=== PATIENT | female | born 1965 | race Caucasian/White ===

== ENCOUNTER → 2020-07-25 | Day surgery (SDC) | payer OTHER ==
--- OUTSIDE RECORDS SUMMARY | 2020-07-25 11:16 | XMS REPORT | Clinical Summary ---
:1965 Author Organization [facility] Address [address] [place] [address] Care Team Providers Name Role Phone Pedro Naidu MD, Topher Shen Primary Care Provider [phone] Allergies Not on File Medications Not on file Active Problems Not on file Encounters Date Type Specialty Care Team Description 07/18/2020 Hospital Encounter Radiology [place], [place] Radicu lopathy, cervical region; MD [place] Screening for osteoporosis 07/18/2020 Hospital Encounter Radiology Esvinot, [place] Radicu lopathy, cervical region; MD [place] Screening for osteoporosis 07/18/2020 Hospital Encounter Radiology Winter[place]ot, [place] Radicu lopathy, cervical MD [place] 07/18/2020 Transcribe Orders Access Kerry Espinalyojaci Luiscul opadaisy shukla MD region (Primar y Dx) 07/18/2020 Travel 07/14/2020 Community Orders ADMIN Kerry Espinalyola Radiculo walter, daisy Betancourt MD (Primary Dx) 07/06/2020 Travel 07/04/2020 Hospital Encounter Radiology Kerry Espinalyola Radicu lopathy, cervical MD [place] region 07/04/2020 Travel 07/04/2020 Transcribe Orders Access Winnie Espinall daisy bell MD region (Primar y Dx) after 07/25/2019 Social History Tobacco Use Types Packs/Day Years Used Date Never Assessed Sex Assigned at Date Recorded Not on file Job Start Date Occupation Industry Not on file Not on file Not on file COVID-19 Exposure Response Date Recorded In the last month, have you been in contact with No / Unsure 07/18/2020 11:43 AM LEAD MECHANIC someone who was confirmed or suspected to have Coronavirus / COVID-19? Last Filed Vital Signs Vital Sign Reading Time Taken Comments Blood Pressure - - Pulse - - Temperature - - Respiratory Rate - - Oxygen Saturation - - Inhaled Oxygen Concentration - - Weight 74.4 kg (164 lb) 07/18/2020 2:59 PM LEAD MECHANIC Height 165.1 cm (5' 5") 07/18/2020 2:59 PM LEAD MECHANIC Body Mass Index 27.29 07/18/2020 2:59 PM LEAD MECHANIC Plan of Treatment Health Maintenance Due Date Last Done Comments CERVICAL CANCER SCREENING 11/17/1988 BREAST CANCER SCREENING 11/17/2017 COLONOSCOPY SCREENING 11/17/2017 SHINGLES VACCINES (#1) 11/17/2017 INFLUENZA VACCINE 03/12/2020 Procedures Procedure Name Priority Date/Time Associated Diagnosis Comme nts BONE DENSITY Routine 07/18/2020 2:59 Radiculopathy, Results f or this PM LEAD MECHANIC cervical region procedure are in Screening for the results osteoporosis section. MRI CERVICAL SPINE Routine 07/18/2020 12:18 Radiculopathy, Res ults for this WO CONTRAST PM LEAD MECHANIC cervical procedure are i n the results section. XR CERVICAL SPINE Routine 07/04/2020 12:58 Radiculopathy, Resu lts for this COMPLETE W FLEX EXT PM LEAD MECHANIC cervical region proce dure are in the results section. after 07/25/2019 Results Bone Density (07/18/2020 2:59 PM LEAD MECHANIC) Specimen Narrative Performed At EXAMINATION: BONE DENSITY [facility] CLINICAL HISTORY: M54.12 Radiculopathy cervical re gion, Z13.820 Encounter for screening for osteoporosis, xray. Oste oporosis screening. COMPARISON: None. The results of this study expressed as bone mineral de nsity (BMD) were as follows: Trabecular Bone Score (TBS): TBS L1-L4: 1.349, (>1.350 normal, 1.200-1.350 partia lly degraded microarchitecture, <1.200 degraded micro architecture.) The 10 year probability of fracture, adj usted for FRAX: Major Osteoporotic Fracture: 6.0% Hip Fracture: 0.5% AP spine (L1- L4) BMD: 1.281 g/cm2 T-Score: 0.8 Z-Score: 1.1 Dual Femur (Total Mean): BMD: 0.925 g/cm2 T-Score: -0.7 Z-Score: -0.3 IMPRESSION: Normal bone mineral density. [id number] A copy of this scans including a report detailing thes e results will follow. Note: The world health organization (WHO) has classifi ed the patient's T-score as follows: Above (-1) as normal (-1) to (-2.5) as low (osteopenia) Below (-2.5) as abnormally low (osteopor osis, increased fracture risk) For premenopausal women, men under age 50 years, and children, the WHO classification does not apply. In these individuals pl ease assess bone mineral density with Z scores for each s keletal site examined. Z scores above -2.0: Within expected ran ge for age. Z scores equal to or lower than -2.0: Below the expe cted range for age. Dual femur FRAX: Risk factors: None. 10 year probability of fracture: 1. Major osteoporotic: 6.1% 2. Hip:0.6% 3. Based on dual femur right neck BMD Procedure Note Hm Interface, Radiology Results Incoming - 07/18/2020 3:20 PM LEAD MECHANIC EXAMINATION: BONE DENSITY CLINICAL HISTORY: M54.12 Radiculopathy cervical region, Z13.820 Encounter for screening for osteoporosis, xray. Osteoporosis screening. COMPARISON: None. The results of this study expressed as b one mineral density (BMD) were as follows: Trabecular Bone Score (TBS): TBS L1-L4: 1.349, (>1.350 normal, 1.200 -1.350 partially degraded microarchitecture, <1.200 degraded microarchitecture.) The 10 year probability of fracture, adj usted for FRAX: Major Osteoporotic Fracture: 6.0% Hip Fracture: 0.5% AP spine (L1- L4) BMD: 1.281 g/cm2 T-Score: 0.8 Z-Score: 1.1 Dual Femur (Total Mean): BMD: 0.925 g/cm2 T-Score: -0.7 Z-Score: -0.3 IMPRESSION: Normal bone mineral density. [id number] A copy of this scans including a report detailing these results will follow. Note: The world health organization (WHO ) has classified the patient's T-score as follows: Above (-1) as normal (-1) to (-2.5) as low (osteopenia) Below (-2.5) as abnormally low (osteopor osis, increased fracture risk) For premenopausal women, men under age 50 years, and children, the WHO classification does not apply. In these individuals please assess bone mineral density with Z scores for each skeletal site examined. Z scores above -2.0: Within expected ran ge for age. Z scores equal to or lower than -2.0: B elow the expected range for age. Dual femur FRAX: Risk factors: None. 10 year probability of fracture: 1. Major osteoporotic: 6.1% 2. Hip:0.6% 3. Based on dual femur right neck BMD Performing Organization Address City/State/ZIP Code Phon e Number [facility] [address] [place] [address] MRI Cervical Spine Wo Contrast (07/18/2020 12:18 PM LEAD MECHANIC) Specimen Narrative Performed At This result has an attachment that is no t available. EXAMINATION: MRI CERVICAL SPINE WO CONTRAST [facility] CLINICAL HISTORY: M54.12 Radiculopathy cervical helen on, Neck pain COMPARISON: July 04, 2020. TECHNIQUE: Multiplanar multisequence non contrast enhanced examination was performed of the cervical spine. FINDINGS: There is straightening of the cervical l ordosis. No spondylolisthesis is seen at any level. Vertebral body heights are maintained. No evidence of marrow edema or suspicious intraosseous lesion. Atlantoaxial, atlantooccipital, bilateral facet articulations are maintained. Partially imaged posterior fossa structures are mainta ined. Visualized cord shows normal signal characteristics, m orphology and caliber. Changes at individual levels are provided below. At C2-C3, no significant disc bulge. No spinal canal or neural foraminal narrowing. At C3-C4, no significant disc bulge. No spinal canal or neural foraminal narrowing. At C4-C5, there is loss of disc height. There is a broad-based posterior disc bulge. There is uncovertebral hypertrophy. There is moderate spinal canal and moderate to severe right and severe left neural foraminal narrowing. At C5-C6, loss of disc height. There is a right paracentral disc protrusion with an underlying broad-based posterior disc bulge. Uncovertebral/facet arthrosis is present. There is moderate spinal canal and moderate to severe right and severe left neural foraminal narrowing. At C6-C7, there is a mild posterior disc bulge. There is uncovertebral/facet arthrosis. There is mild spinal canal narrowing. There is mild bilateral neural foraminal narrowing. A small 4 mm perineural cyst seen in the left neural foramina. At C7-T1, no significant disc bulge, no significant spinal canal or neural foraminal narrowing. Pre and paraspinal soft tissues are maintained. IMPRESSION: Multilevel degenerative zhang ges that are most advanced at C4-C5 and C5-C6 where there is moderate spinal canal, moderate to severe right and severe left neural foraminal narrowing. No cord signal intensity abnormality. [id number] Procedure Note Hm Interface, Radiology Results Incoming - 07/18/2020 1:10 PM LEAD MECHANIC EXAMINATION: MRI CERVICAL SPINE WO CONTRAST CLINICAL HISTORY: M54.12 Radiculopathy cervical region, Neck pain COMPARISON: July 04, 2020. TECHNIQUE: Multiplanar multisequence non contrast enhanced examination was performed of the cervical spine. FINDINGS: There is straightening of the cervical l ordosis. No spondylolisthesis is seen at any level. Vertebral body heights are maintained. No evidence of marrow edema or suspicious intraosseous lesion. Atlantoaxial, atlantooccipital, bilateral facet articulations are maintained. Partially imaged posterior fossa structu res are maintained. Visualized cord shows normal signal marcy acteristics, morphology and caliber. Changes at individual levels are provide d below. At C2-C3, no significant disc bulge. No spinal canal or neural foraminal narrowing. At C3-C4, no significant disc bulge. No spinal canal or neural foraminal narrowing. At C4-C5, there is loss of disc height. There is a broad-based posterior disc bulge. There is uncovertebral hypertrophy. There is moderate spinal canal and moderate to severe right and severe left neural foraminal narrowing. At C5-C6, loss of disc height. There is a right paracentral disc protrusion with an underlying broad-based posterior disc bulge. Uncovertebral/facet arthrosis is present. There is moderate spinal canal and moderate to severe right and severe left neural foraminal narrowing. At C6-C7, there is a mild posterior disc bulge. There is uncovertebral/facet arthrosis. There is mild spinal canal narrowing. There is mild bilateral neural foraminal narrowing. A small 4 mm perineural cyst seen in the left neural foramina. At C7-T1, no significant disc bulge, no significant spinal canal or neural foraminal narrowing. Pre and paraspinal soft tissues are main tained. IMPRESSION: Multilevel degenerative zhang ges that are most advanced at C4-C5 and C5-C6 where there is moderate spinal canal, moderate to severe right and severe left neural foraminal narrowing. No cord signal intensity abnormality. [id number] Performing Organization Address City/State/ZIP Code Phon e Number [facility] [id number] [place] [address] XR Cervical Spine Complete w flex/ext (07/04/2020 12:58 PM LEAD MECHANIC) Specimen Narrative Performed At EXAMINATION: Lateral neural, flexion and extension vie ws; oblique, AP [facility] and odontoid radiographs of the cervical spine in the standing position. CLINICAL HISTORY: M54.12 Radiculopathy cervical helen on, Bone neoplasm C-spine check for local recurrence, XRAY COMPARISON: None FINDINGS: There is straightening of the cervical lordosis. There is poor visualization below the C6-7 disc space on the lateral neutral, extension and flexion views. There is mild anterolisth esis at C2-3 and C3-4 with flexion not seen with extensio n. There is greater disc space narrowing at C5-6 and C6-7. There a re ventral osteophytes more prominent at C5-6 and C6-7. There is mild dorsal spondylosis at C4-5, C5-6 and C6-7. There is facet and uncovertebral joint hypertrophic changes. There is for aminal stenosis more prominent on the left at C5-6. Overlying structures obscure details of the mid to lower righ t foramen on the oblique view. The cervical curvature is convex towards the right. Th ere is a left C7 cervical rib and prominent right C7 casas sverse process. IMPRESSION: Degenerative changes in the cervical spi ne. [id number] Procedure Note Hm Interface, Radiology Results Incoming - 07/04/2020 5:05 PM LEAD MECHANIC EXAMINATION: Lateral neural, flexion and extension views; oblique, AP and odontoid radiographs of the cervical spine in the standing position. CLINICAL HISTORY: M54.12 Radiculopathy cervical region, Bone neoplasm C-spine check for local recurrence, XRAY COMPARISON: None FINDINGS: There is straightening of the cervical l ordosis. There is poor visualization below the C6-7 disc space on the lateral neutral, extension and flexion views. There is mild anterolisthesis at C2-3 and C3-4 with flexion not seen with extension. There is greater disc space narrowing at C5-6 and C6-7. There are ventral osteophytes more prominent at C5-6 and C6-7. There is mild dorsal spondylosis at C4-5, C5-6 and C6-7. There is facet and uncovertebral joint hypertrophic changes. There is foraminal stenosis more prominent on the left at C 5-6. Overlying structures obscure details of the mid to lower right foramen on the oblique view. The cervical curvature is convex towards the right. There is a left C7 cervical rib and prominent right C7 transverse process. IMPRESSION: Degenerative changes in the cervical spi ne. [facility]-[id number] Performing Organization Address City/State/ZIP Code Phon e Number [facility] [address] [place] [address] after 07/25/2019 Advance Directives For more information, please contact: [phone] Type Date Recorded Patient Hiv Prevention Specialist Explanati on Advance Directives, Living 07/04/2020 12:28 PM Will and Medical Power of Sheet Hanger
--- OUTSIDE RECORDS SUMMARY | 2020-07-25 11:17 | XMS REPORT | Continuity of Care Document ---
:1965 Author Organization [facility] t Address [address] [place] [address] Care Team Providers Name Role Phone [facility] Primary Care Physician Unavailable MIMI Attending Clinician Unavailable Asia Espinal MD Attending Clinician Mimi BRENNAN Attending Clinician Bouchra LYONS Attending Clinician Ailyn BRENNAN Attending Clinician Payers Payer Name Policy Policy Number Effective Expiration Source Type Date Date [facility] PPO [id number] 2019 00:00:00 FORMERLY [facility] [id number] 2019 [place] CHOICE/CHOICE 00:00:00 [facility] [id number] 2019-Pres entHMO/PPO Problems Condition Condition Condition Status Onset Resolution Last Treating Co mments Source Name Details Category Date Date Treatment Clinician Date Melanoma Melanoma Disease Active in situ of in situ of 8-10 An derso trunk trunk 00:00: n 00 Allergies, Adverse Reactions, Alerts This patient has no known allergies or adverse reactions. Social History Social Habit Start Date Stop Date Quantity Comments Source History of tobacco 1983-06-19 Cigarette Smoker MD Mcnair use 00:00:00 Exposure to Not sure [place] SARS-CoV-2 (event) Method ist Sex Assigned At MD [place] on Cigarettes smoked 2020-03-22 2020-03-22 MD Fran powell current (pack per 00:00:00 00:00:00 day) - Reported Cigarette 2020-03-22 2020-03-22 MD Mcnair pack-years 00:00:00 00:00:00 Tobacco use and 2020-03-22 2020-03-22 Never used MD [place] exposure 00:00:00 00:00:00 Alcohol intake 2020-03-22 2020-03-22 Current MD Tae bradshaw 00:00:00 00:00:00 non-drinker of alcohol (finding) Tobacco Comment 2018-06-19 2018-06-19 Used to smoke on 00:00:00 00:00:00 20cpd; Currently smoking 7cpd Smoking Status Start Date Stop Date Source Former smoker 2020-03-22 00:00:00 2020-03-22 00:00:00 MD Juice mcgovern Medications Ordered Filled Start Stop Current Ordering Indication Dosage Frequency Signature Comments Components Source Medication Medication Date Date Medication? Clinician (SIG) Name Name atorvastati 0 Yes 20mg 20 mg. MD bradshaw (LIPITOR) 8-11 Anderso 20 mg 16:29: n tablet 31 meloxicam 0 Yes 15mg 15 mg. (MOBIC) 15 8-11 Anderso mg tablet 16:29: n 31 ALPRAZolam 2019-0 Yes 1mg 1 mg. (XANAX) 1 8-11 Anderso mg tablet 16:29: n 31 sertraline 2019-0 Yes 150mg Take 150 (ZOLOFT) 8-11 mg by Anderso 100 mg 16:29: mouth at n tablet 31 bedtime. fluorouraci 2019-0 Yes Actinic Apply MD larson (Efudex) 4-03 keratosis topically Anderso 5% cream 00:00: to n 00 affected area(s) twice daily. Apply to bilateral forearms twice daily for 2 weeks mupirocin 2018- Yes Skin ulcer Apply to (BACTROBAN) 5-07 open areas An derso 2% ointment 00:00: on face 3 n 00 times daily hydrocortis 2018-0 Yes Inflammatio Apply to MD one 2.5% 5-07 n of skin face twice Anderso cream 00:00: AND/OR daily as n 00 subcutaneou needed for s tissue inflammati on traMADol Yes Melanoma in 50mg Take 1 (ULTRAM) 50 9-25 situ of tablet (50 Anderso mg tablet 00:00: trunk mg) by n 00 mouth every 6 (six) hours as needed for pain. Vital Signs Vital Name Observation Time Observation Value Comments Source Body height 2020-07-18 14:59:00 165.1 cm Cedric Brush Body weight 2020-07-18 14:59:00 74.39 kg Cedric Brush BMI 2020-07-18 14:59:00 27.29 kg/m2 Cedric Brush Systolic blood 2020-03-22 16:22:03 126 mm[Hg] pressure Diastolic blood 2020-03-22 16:22:03 84 mm[Hg] MD Nevaeh vang pressure Heart rate 2020-03-22 16:22:03 80 /min MD Juice mcgovern Body temperature 2020-03-22 16:22:03 36.5 Amber MD Bear abbotton Respiratory rate 2020-03-22 16:22:03 18 /min MD Bear abbotton Body weight 2019-11-13 14:55:28 72.8 kg MD Juice mcgovern BMI 2019-11-13 14:55:28 26.71 kg/m2 MD Juice mcgovern Oxygen saturation in 2019-11-13 14:55:28 96 /min MD Mcnair Arterial blood by Pulse oximetry Procedures Procedure Date / Time Performing Clinician Source Performed BONE DENSITY 2020-07-18 14:59:10 Winnie Espinal odist [place] MRI CERVICAL SPINE WO 2020-07-18 12:18:00 Winnie Espinal CONTRAST [place] XR CERVICAL SPINE COMPLETE 2020-07-04 12:58:00 Winnie Espinal W FLEX EXT [place] SURGICAL BIOPSY HISTORIC 2019-11-13 17:00:00 Den Kline MD PATHOLOGY BIOPSY SPECIMEN 2019-11-13 15:33:00 Jerod Shook MD INTERPRETATION Plan of Care Planned Activity Planned Date Details Comments Source Future Scheduled 2020-03-12 INFLUENZA VACCINE Melquiades Brush Test 00:00:00 [code = INFLUENZA VACCINE] Future Scheduled 2017-11-17 BREAST CANCER [facility] Test 00:00:00 SCREENING [code = BREAST CANCER SCREENING] Future Scheduled 2017-11-17 COLONOSCOPY SCREENING zenaida [facility] Test 00:00:00 [code = COLONOSCOPY SCREENING] Future Scheduled 2017-11-17 SHINGLES VACCINES [place] [facility] Test 00:00:00 (#1) [code = SHINGLES VACCINES (#1)] Future Scheduled 1988-11-17 Screening for [facility] thodist Test 00:00:00 malignant neoplasm of cervix (procedure) [code = 943995546] Encounters Start End Encounter Admission Attending Care Care Encounter Source Date/Time Date/Time Type Type Clinicians Facility Department ID 2020-09-20 2020-09-20 Outpatient TIANA LE MDA MDA [id number] 00:00:00 00:00:00 MELVI bradshaw 2020-07-18 2020-07-18 Outpatient [facility] [id number] [place] 00:00:00 00:00:00 WINNIE 856 Method i 2020-07-18 2020-07-18 [facility] [id number] [place] 00:00:00 00:00:00 WINNIE 165 Method i 2020-07-18 2020-07-18 Outpatient [facility] [id number] [place] 00:00:00 00:00:00 WINNIE 544 Method i 2020-07-04 2020-07-04 Outpatient [facility] [id number] [place] 00:00:00 00:00:00 WINNIE [address] 2020-03-22 2020-03-22 Outpatient TIANA LE MDA MDA [id number] 11:17:48 11:44:52 MELVI bradshaw Results Test Description Test Time Test Comments Results Result [facility] e Comments Bone Density [facility] [address] 15:17:54 07/18/2020 3:20 PM CSTEXAMINATION: BONE DENSITYCLINICAL HISTORY: M54.12 Radiculopathy cervical region, Z13.820 Encounter for screening for osteoporosis, xray. Osteoporosis screening. COMPARISON: None.The results of this study expressed as bone mineral density (BMD) were as follows:Trabecular Bone Score (TBS):TBS L1-L4: 1.349, (>1.350 normal, 1.200-1.350 partially degraded microarchitecture, <1.200 degraded microarchitecture.)The 10 year probability of fracture, adjusted for FRAX:Major Osteoporotic Fracture: 6.0%Hip Fracture: 0.5%AP spine (L1- L4)BMD: 1.281 g/yz0L-Tlctf: 0.8Z-Score: 1.1 Dual Femur (Total Mean):BMD: 0.925 g/ld7P-Rdwiz: -0.7Z-Score: -0.3 IMPRESSION: Normal bone mineral density.[id number] A copy of this scans including a report detailing these results will follow.Note: The world health organization (WHO) has classified the patient's T-score as follows:Above (-1) as normal(-1) to (-2.5) as low (osteopenia)Below (-2.5) as abnormally low (osteoporosis, increased fracture risk)For premenopausal women, men under age 50 years, and children, the WHO classification does not apply. In these individuals please assess bone mineral density with Z scores for each skeletal site examined. Z scores above -2.0: Within expected range for age. Z scores equal to or lower than -2.0: Below the expected range for age.Dual femur FRAX:Risk factors: None.10 year probability of fracture:1. Major osteoporotic: 6.1%2. Hip:0.6%3. Based on dual femur right neck BMD MRI Cervical [facility] Spine Wo [address] Contrast 13:07:46 Incoming - 07/18/2020 1:10 PM CSTEXAMINATION: MRI CERVICAL SPINE WO CONTRASTCLINICAL HISTORY: M54.12 Radiculopathy cervical region, Neck painCOMPARISON: July 04, 2020.TECHNIQUE: Multiplanar multisequence noncontrast enhanced examination was performed of the cervical spine.FINDINGS:There is straightening of the cervical lordosis. No spondylolisthesis is seen at any level. Vertebral body heights are maintained. No evidence of marrow edema or suspicious intraosseous lesion. Atlantoaxial, atlantooccipital, bilateral facet articulations are maintained.Partially imaged posterior fossa structures are maintained.Visualized cord shows normal signal characteristics, morphology and caliber.Changes at individual levels are provided below.At C2-C3, no significant disc bulge. No spinal canal or neural foraminal narrowing.At C3-C4, no significant disc bulge. No spinal canal or neural foraminal narrowing.At C4-C5, there is loss of disc height. There is a broad-based posterior disc bulge. There is uncovertebral hypertrophy. There is moderate spinal canal and moderate to severe right and severe left neural foraminal narrowing.At C5-C6, loss of disc height. There is a right paracentral disc protrusion with an underlying broad-based posterior disc bulge. Uncovertebral/facet arthrosis is present. There is moderate spinal canal and moderate to severe right and severe left neural foraminal narrowing.At C6-C7, there is a mild posterior disc bulge. There is uncovertebral/facet arthrosis. There is mild spinal canal narrowing. There is mild bilateral neural foraminal narrowing. A small 4 mm perineural cyst seen in the left neural foramina.At C7-T1, no significant disc bulge, no significant spinal canal or neural foraminal narrowing.Pre and paraspinal soft tissues are maintained.IMPRESSION: Multilevel degenerative changes that are most advanced at C4-C5 and C5-C6 where there is moderate spinal canal, moderate to severe right and severe left neural foraminal narrowing. No cord signal intensity abnormality.[id number] XR Cervical 2020-06-13 [facility] Spine Complete w 3 Radiology Results M ethodist flex/ext 17:02:25 Incoming - 07/04/2020 5:05 PM CSTEXAMINATION: Lateral neural, flexion and extension views; oblique, AP and odontoid radiographs of the cervical spine in the standing position.CLINICAL HISTORY: M54.12 Radiculopathy cervical region, Bone neoplasm C-spine check for local recurrence, XRAYCOMPARISON: NoneFINDINGS:There is straightening of the cervical lordosis. There [...] to lower right foramen on the oblique view.The cervical curvature is convex towards the right. There is a left C7 cervical rib and prominent right C7 transverse process.IMPRESSION:Deg enerative changes in the cervical spine.[facility]-[id number]
--- NOTE | 2020-07-25 13:35 | RAD REPORT ---
EXAM DESCRIPTION: US - Breast Core BX w/US Guidance - 07/25/2020 11:41 am CLINICAL HISTORY: ICD R 92.8 COMPARISON: July 13, 2020 ultrasound TECHNIQUE: The risks, benefits alternatives to the procedure were explained to the patient and infor med consent obtained. Skin and subcutaneous tissues anesthetized with lidocaine. Under sonographic guidance two 14 gauge vacuum assisted core biopsies of the 1.3 centimeter mass with in the outer lower right breast obtained. 2 centimeter specimens taken. Materials given to pathology. Subsequently a localizing clip was placed into the mass. Patient experienced no immediate complication IMPRESSION: Vacuum assisted core biopsies of the right breast mass
== END ==
LOC: DS 10:41
PROVIDERS: ATTEND Nurse Practitioner Family
DX: R92.8 Other abnormal and inconclusive findings on diagnostic imaging of breast (principal)
CPT/HCPCS: 19083; 88305

== ENCOUNTER 2024-10-01 06:23 | Day surgery (SDC) | payer OTHER ==
[2024-09-30 14:12] LABS: Absolute Basophils 0.1 K/uL (0-0.5); Absolute Eosinophils 0.1 K/uL (0-0.5); Absolute Lymphocytes (CBC) 4.1 K/uL (0.7-4.9); Absolute Monocytes 0.8 K/uL (0.1-1.3); Absolute Neutrophil 5.4 K/uL (1.8-8.0); Basophils % 0.8 % (0-1.3); Eosinophils % 1.1 % (0-4.4); Hemoglobin 14.7 g/dL (12.0-15.0); MCH 30.5 pg (27.0-35.0); MCHC 33.3 g/dL (32.0-36.0); MCV 91.5 fL (80-100); MPV 8.2 fL (7.6-11.3); Monocytes % 7.7 % (3.3-12.3); Neutrophils % 51.4 % (41.7-73.7); Platelets 422 thou/uL (152-406); RBC Red Blood Cell Count 4.81 M/uL (3.86-4.86); Red Cell Distribution Width 14.7 % (12.1-15.2)
[2024-09-30 14:20] LABS: Anion Gap 8.7 mEq/L (5.0-15.0); Potassium 4.7 mEq/L (3.5-5.1)
[2024-10-01] MEDS ORDERED: propofoL 200 MG/20 ML VIAL IV ONE (07:16)
[2024-10-01] MEDS ORDERED: ROCURONIUM 50 MG/5 ML VIAL IV ONE (07:16)
[2024-10-01] MEDS ORDERED: ONDANSETRON 4 MG/2 ML VIAL ONE (07:16)
[2024-10-01] MEDS ORDERED: LIDOCAINE 2% MPF 5 ML VIAL ONE (07:16)
[2024-10-01] MEDS ORDERED: FENTANYL CITR 100 MCG/2 ML ONE (07:16)
[2024-10-01] MEDS ORDERED: MIDAZOLAM HCL 2 MG/2 ML INJ ONE (07:16)
[2024-10-01] MEDS: Ringers Lactate 1,000 ML IV ONE (07:43)
[2024-10-01] MEDS: CEFAZOLIN SODIUM 2 GM/VIAL ONE (07:49)
[2024-10-01] MEDS: LIDOCAINE HCL/EPINEPHRINE 20 ML MDV ONE (08:07)
[2024-10-01] MEDS: CLINDAMYCIN 900MG/D5W 900 MG/50 ML IVPB IV ONE (08:21)
[2024-10-01] MEDS ORDERED: Mastisol Adhesive Liq ONE (09:07)
[2024-10-01] MEDS: HYDROMORPHONE HCL 1 MG/ML INJ ONE (10:00)
[2024-10-01] MEDS ORDERED: CODEINE 30MG/APAP 300MG TAB ONE (10:45)
[2024-10-01] MEDS: CODEINE 30MG/APAP 300MG TAB PO ONE (10:49)
[2024-10-01 12:36] VITALS: BP 125/86; TEMP 97.2; O2SAT 97
--- NOTE | 2024-10-05 12:21 | EKG ---
Test Date: 2024-09-30 Test Time: 14:41:34 Bender Machine: SARAH MEASUREMENT RESULTS: Intervals: Rate: 57 GA: 162 QRSD: 70 QT: 418 QTc: 406 Minturn: P: 34 GA: 162 QRS: 6 T: 37 INTERPRETIVE STATEMENTS: Sinus bradycardia Otherwise normal ECG No previous ECG available for comparison Electronically Signed On 10-05-24 12:15:20 OIL WELL DRILLING MANAGER by Binh Norris
--- NOTE | 2024-10-07 00:25 | OP ---
Date of Procedure: 10/01/2024 Surgeon: XI HAWK Preoperative Diagnoses: 1. Moderate obstructive sleep apnea. 2. BMI 26.0 to 26.9. 3. Obesity. Postoperative Diagnoses: 1. Moderate obstructive sleep apnea. 2. BMI 26.0 to 26.9. 3. Obesity. Procedures: 1. Drug-induced sleep endoscopy under general IV sedation. 2. Hyoid myotomy and suspension. Anesthesia: General endotracheal anesthesia was administered. IV propofol sedation was given initia lly for the endoscopy. I also infiltrated approximately 10 mL of 1% lidocaine with 1:100,000 epineph rine at both neck incision sites, 1 submental and 1 directly over the hyoid bone. Estimated Blood Loss: Less than 10 mL. Findings: Retro position hyoid bone, almost complete anterior/posterior velopharyngeal collapse with no evidence of lateral wall collapse and no evidence of concentric collapse, redundant soft palate a nd uvula. Complications: None. Disposition: Stable. The patient tolerated the procedure well. Indication For Procedure: The patient is a pleasant 58-year-old female with longstanding history of obstructive sleep apnea. The patient had a home sleep study performed in April 2024, which demon strated moderate obstructive sleep apnea. Her condition was initially treated with CPAP mask, but loren was very intolerant to the mask. Thus, these were indications to bring the patient to the operativ e suite for the above-mentioned procedure. Drug-induced sleep endoscopy was planned and performed in the case that she did qualify in the future for an Inspire implant hypoglossal nerve stimulator. Felice pimentel understood. All questions were answered. Risks versus benefits and complications were explained i n detail and a consent form was signed, which was placed in the chart. Description Of Procedure: The patient was transferred from the preoperative holding area to the oper ative suite by Department of Anesthesia and placed on the operating table supine. The patient was gi emelia initially 50 mg of IV propofol sedation, but she was still having excessive movement when the sco pe was placed into the right nasal cavity and thus an additional 50 mg was given. The patient fell a sleep. The scope was advanced along the floor of the right nasal cavity and left nasal cavity and po sitioned at the velopharynx. Her airways were monitored over a period of approximately 5 minutes and we recorded the findings. The patient had almost complete anterior/posterior closure with no eviden ce of lateral wall or concentric collapse. After about 5 minutes of recording, the scope was withdra wn. The patient tolerated well. At this point, the patient was intubated with an appropriate sized endotracheal tube and this was secured to the mouth. The patient was then rotated 180 degrees and a shoulder roll was placed. I infiltrated approximately 10 mL of 1% lidocaine with 1:100,000 epinephri ne at the submental incision site and the incision site directly over the hyoid bone. The patient wa s then sterilely prepped and draped. The submandibular incision was made with a #15 blade scalpel down through the epidermis and down to t he subcutaneous fat with #15 blade scalpel. Then, I switched over to monopolar electrocautery on a s etting of 20 for coagulation and 1 of cutting and dissected to the submental mandible. Once down to the submental bone, I then drilled 2 holes on either side of the genial tubercle utilizing the [employer] al drill. I then inserted the hyoid myotomy screws into both drill holes. Irrigation was used throu ghout drilling. A wet Ray-Azucena was placed over the area and then I turned my attention to the hyoid b one. An incision was made directly over the retro displaced hyoid bone through the skin, down to subcutane ous tissue, and then once down to the platysma, I utilized a #15 blade scalpel initially and then we switched to monopolar electrocautery. Once down the platysma, I then switched to the ligature to per form dissection down the hyoid bone. Once down the hyoid bone, a cricoid hook was placed inferiorly and posteriorly behind the hyoid bone and lifted out of the incision and then a large metal hook sutu re passer was then inserted just behind the cricoid hook and advanced superiorly. A wire passer was then introduced through the hole of the metal passer. The passing suture was then brought through th e wire passer and through the metal hook. The looped portion was then brought out into the inferior edge of the hyoid bone. I then introduced the blue and white tails of the permanent suture through t he looped portion of the green and white suture passer looped thread and then this was brought up jus t superior to the superior edge of the hyoid bone. I then placed hinged knots to secure the blue and white sutures to the hyoid bone. Next, I tunneled the blue and white threads from the hyoid bone to the sub mentum utilizing tonsil he mostats for tunneling and then those permanent threads were brought up through the tunnels. They wer e then attached to the screws in the sub mentum. Then I took out the shoulder roll and then at that point, placed 1 knot into the blue suture and 1 knot into the white suture. I then performed approxi mately 25 mm of hyoid suspension, pulling up on the threads and then once I obtained 25 mm, I then ti ghtened the screws disposition to hold the suspension in place. I then placed multiple knots of the blue and white sutures just to keep it to secure. Both wound defects were irrigated with a mixture o f saline and clindamycin 900 mg. Hemostasis was achieved with suction Bovie cautery. Subcutaneous t issue and platysma were reapproximated with 3-0 Vicryl in a simple interrupted fashion. Dermal tissu e was reapproximated in a simple interrupted fashion with 4-0 Monocryl suture and then the epidermis was reapproximated in a subcuticular fashion with 4-0 Monocryl suture. A compressive face-lift dress ing was placed. She tolerated the procedure well and was discharged back to Department of Anesthesia in stable condition. She was subsequently sent to PACU in stable condition and discharged home on a ntibiotic and analgesic medication and she will follow up in 1 week or sooner if needed. RUPINDER/MIRIAM Voice ID: [id number] Report ID: [id number]
== END 2024-10-01 11:31 | disposition home or self-care (01) ==
LOC: OR 06:23
PROVIDERS: ATTEND Otolaryngology Facial Plastic Surgery
PROC: 0CJS8ZZ Inspection of Larynx, Via Natural or Artificial Opening Endoscopic (ICD-10-PCS; principal; 2024-10-01 07:30)
PROC: 0NSX0ZZ Reposition Hyoid Bone, Open Approach (ICD-10-PCS; 2024-10-01 07:30)
DX: G47.33 Obstructive sleep apnea (adult) (pediatric) (principal); R13.12 Dysphagia, oropharyngeal phase; Z68.26 Body mass index [BMI] 26.0-26.9, adult
CPT/HCPCS: 42975; 21685; 93005; 85025; 80048; 36415; J2704; J2003; J2250; J3010; J1171; J2405; C1713; J7120

== ENCOUNTER 2024-10-12 10:27 | Emergency (ER) | payer OTHER ==
--- OUTSIDE RECORDS SUMMARY | 2024-10-12 10:32 | XMS REPORT | Clinical Summary ---
Author Name Unknown Organization [facility] Address [address] [place] [address] Care Team Providers Care Plastic Sewer Name Role Phone Gibran Taylor Unavailable [phone] Gurpreet Davila MD Unavailable [phone] Fior Mccoy MD Primary Care Provider [phone] Mira Dunbar MD Unavailable Teresa Webb MD Unavailable Allergies No known active allergies Medications * This document contains information received from the source organization and may not represent a complete record from that organization. meloxicam (MOBIC) 15 mg tablet Take 1 tablet (15 mg) by mouth daily. Active sertraline HCl (SERTRALINE ORAL) Take 150 mg by mouth at bedtime. Active lisinopril (PRINIVIL,ZESTR IL) 5 mg tablet Take 1 tablet (5 mg) by mouth daily. Active montelukast (SINGULAIR) 10 mg tablet Take 1 tablet (10 mg) by mouth daily. 1 Active atorvastatin (LIPITOR) 40 mg tablet Take 1 tablet (40 mg) by mouth daily. 2 Active eszopiclone (LUNESTA) 3 mg tablet Take 1 tablet (3 mg) by mouth daily. 2 Active levothyroxine (SYNTHROID, LEVOTHROID) 125 mcg tablet Take 1 tablet (125 mcg) by mouth daily. 2 Active fluorouracil (EFUDEX) 5% creamIndication s:Actinic keratosis Apply twice a day for two weeks to the hands and forearms as well as to the scaly pink spot on the right eyebrow and left forehead. Stop early for bleeding, blistering, pain without touch. 40 g 3 Active rOPINIRole (REQUIP) 2 mg tablet Take 1 tablet (2 mg) by mouth 3 (three) times a day. 4 Active pantoprazole (PROTONIX) 40 mg EC tablet Take 1 tablet (40 mg) by mouth every morning before breakfast. 4 Active Trelegy Ellipta 100-62.5-25 mcg dsdv Inhale 1 each by mouth daily. 4 Active LORazepam (ATIVAN) 0.5 mg tablet Take 1 tablet (0.5 mg) by mouth twice daily. 2 11/28/19 24 Discontinue d(Discontin ued by another clinician) Active Problems Problem Noted Date Diagnosed Date History of melanoma in situ of skin 11/28/2023 Overview (11/28/2023): - 02/25/2018, melanoma in situ (lentigo maligna type), right chest, peripheral margin +; 05/06/2018, therapeutic excision (margin clear but close) Personal history of other malignant neoplasm of skin 11/28/2023 Overview (11/28/2023): - 11/13/2019, squamous cell carcinoma in situ, left perineum, diagnostic margins free, 5% 5-fluorouracil x 2 weeks Actinic keratosis 11/28/2023 Overview (11/28/2023): - actinic keratoses: 11/2019, 5% 5-fluorouracil to bilateral forearms - 10/03/2021, intradermal nevus, right nasal groove - 04/03/2022, hypertrophic actinic keratosis with lichenoid inflammation, left lateral lower leg; 5% 5-fluorouracil BID x 2 weeks 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 Encounters Date Type Department Care Team Description 06/02/2024 2:15 PM CDT [facility] [address] [facility], [address] [place] [address] Mira Dunbar MD Common wart (Primary Dx); History of melanoma in situ of skin; Personal history of other malignant neoplasm of skin 06/02/2024 Travel 12/02/2023 Orders Only Undiagnosed Breast Clinic [address] [facility], [address]th [place] [address] Beatriz Escobar, BASTER HAND Encounter for screening mammogram for malignant neoplasm of breast (Primary Dx) 11/28/2023 4:40 PM CDT [facility] [address] [place] [address], [address]nd [place] [address] Beatriz Escobar, BASTER HAND Encounter for screening mammogram for malignant neoplasm of breast (Primary Dx) 11/28/2023 3:45 PM CDT Ancillary Procedure [facility] [address] [place] [address], [address] [place] [address] Beatriz Escobar, BASTER HAND Encounter for screening mammogram for malignant neoplasm of breast 11/28/2023 2:30 PM CDT [facility] [address] [facility], [address]th [place] [address] Mira Dunbar MD History of melanoma in situ of skin (Primary Dx); Personal history of other malignant neoplasm of skin; Actinic keratosis; Inflamed seborrheic keratosis 11/28/2023 Travel after 10/13/2023 Immunizations Name Administration Dates Next Due Moderna SARS-CoV-2 Monovalen t Booster Vaccination (50 mcg/0.5 mL) 08/09/2022 Pfizer SARS-CoV-2 Vaccination 12+ y.o. ,12/14/2020 Surgical History Surgery Date Site/Laterality Comments HYSTERECTOMY 08/12/2013 - 08/11/2014 SUPERIOR OBLIQUE TUCK 08/12/2014 - 08/11/2015 SECTION, LOW TRANSVERSE two children APPENDECTOMY ECTOPIC SURGERY BREAST LUMPECTOMY 07/12/2020 - 08/11/2020 Right ID EXCISION MAL LESION TRUNK/ARM/LEG 0.6-1.0 CM 05/06/2018 Right Procedure: EXCISION OF MALIGNANT LESION OF TRUNK, right chest; Surgeon: Fior Mccoy MD; Location: [facility]; Service: SURG ONC - MELANOMA LIPOSUCTION abd liposuction (360) Medical History Medical History Date Comments Hyperlipidemia Menopause Depressive disorder 1989 Anxiety 1989 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 Family History Medical History Relation Name Comments Skin cancer Father Breast cancer Maternal Aunt diagnosed in her 50s Bladder Cancer Mother Liver cancer Paternal Cousin Skin cancer Sister Relation Name Status Comments Father Maternal Aunt Mother Paternal Cousin Sister Alive Social History Tobacco Use Types Packs/Day Years Used Date Smoking Tobacco: Former Cigarettes 1 38.7 1 08/19/1982 - 03/19/2022 Smokeless Tobacco: Never Tobacco Cessation:Counseling Given: Not Answered Comments:Used to smoke 20 cigarettes/day, tried to quit Aug 2012; Alcohol Use Standard Drinks/Week Comments No 0 (1 standard drink = 0.6 oz pur e alcohol) Comments No Sex and Gender Information Value Date Recorded Sex Assigned at Female 09/19/2020 10:12 PM [employer] Legal Sex Female 10:21 AM CDT Gender Identity Female 09/19/2020 10:12 PM [employer] Sexual Orientation Not on file Obstetrics History Para Term AB IAB SAB Ectopic Multiple Livin g Live Births 5 2 Date Outcome GA Total Labor Labor/2nd/3rd Weight Sex Type Anes PTL Eloisa A1 A5 Name Clin Para Para Comments Menarche: 15 Parity: 21 OBC: none Hormonal Therapy: none Last Pap: 2019 (OS) normal Abnormal Pap: none Last Colon: 2017 (OS) normal; polyps; benign Breast Bx: 07-25-2020 R breast; benign Last Filed Vital Signs Vital Sign Reading Time Taken Comments Blood Pressure 121/83 06/02/2024 2:33 PM CDT Pulse 90 06/02/2024 2:33 PM CDT Temperature - - Respiratory Rate 18 06/02/2024 2:33 PM CDT Oxygen Saturation 95% 06/02/2024 2:33 PM CDT Inhaled Oxygen Concentration - - Weight 71.7 kg (158 lb 1.1 oz) 06/02/2024 2:33 P M CDT Height 165.5 cm (5' 5.16") 06/02/2024 2:33 PM CD T Body Mass Index 26.18 06/02/2024 2:33 PM CDT Plan of Treatment Upcoming Encounters Date Type Department Care Team (Late st Contact Info) Description 12/02/2024 10:25 AM CDT Appointment Mammography [address] [facility], [address] [place] [address] Beatriz Escobar, BASTER HAND [address] [place] [address] [email or web address] 12/02/2024 11:00 AM CDT Office Visit [facility] [address] [facility], [address] [place] [address] Beatriz Escobar, BASTER HAND [address] [place] [address] [email or web address] Maintenance Due Date Last Done Comments Pneumococcal Vaccine: 50+ Ye ars (1 of 1 - PCV) 11/17/2017 COVID-19 Vaccine (2023-2 5 season) 2024 08/09/2022, 07/29/2021, 12/14/2020, Additional history exists Influenza Vaccine (#1) 2024 Procedures Procedure Name Priority Date/Time Associated Diagnosis Comments MAMMO DIGITAL SCREENING BILATERAL W FREDDIE Routine 11/28/2023 3:50 PM CDT Encounter for screening mammogram for malignant neoplasm of breast after 10/13/2023 Results * Mammography Digital Screening Bilateral with Freddie (11/28/2023 3:50 PM CDT) Anatomical Region Laterality Modality Breast Bilateral Mammography 11/29/2023 8:55 AM CDT Impressions 11/29/2023 8:55 AM CDT There is no mammographic evidence of malignancy. Follow-up mammogram in 1 year is recommended. BI-RADS Category 2: Benign Finding(s) Narrative 11/29/2023 8:55 AM CDT CLINICAL INDICATION: Patient is a 58 year old female and is seen for screening. MAMMO DIGITAL SCREENING BILATERAL W FREDDIE Digital Mammogram evaluated with Computer Aided Detection (CAD). COMPARISON: The present examination has been compared to prior imaging studies performed at an outside location on 04/24/2019 and 05/23/2020, and at [facility] on 11/17/2020, 11/24/2021 and 11/19/2022. FINDINGS: There are scattered areas of fibroglandular density. 1: There is an oval mass with associated marker clip in the right breast lower outer quadrant at 7 o'clock located 7 centimeters from the nipple. Finding remains unchanged from the prior study. 2: There is a post surgical scar in the right breast. The patient has a history of benign excisional biopsy. In the left breast, no dominant mass, distortion, or suspicious calcifications are identified. Tomosynthesis performed in CC and MLO projections. Procedure Note Neelam Chong MD - 11/29/2023 CLINICAL INDICATION: Patient is a 58 year old female and is seen for screening. MAMMO DIGITAL SCREENING BILATERAL W FREDDIE Digital Mammogram evaluated with Computer Aided Detection (CAD). COMPARISON: The present examination has been compared to prior imaging studiesperformed at an outside location on 04/24/2019 and 05/23/2020, and at [facility] on 11/17/2020, 11/24/2021 and 11/19/2022. FINDINGS: There are scattered areas of fibroglandular density. 1: There is an oval mass with associated marker clip in the right breastlower outer quadrant at 7 o'clock located 7 centimeters from the nipple.Finding remains unchanged from the prior study. 2: There is a post surgical scar in the right breast. The patient hasa history of benign excisional biopsy. In the left breast, no dominant mass, distortion, or suspiciouscalcifications are identified. Tomosynthesis performed in CC and MLO projections. IMPRESSION: There is no mammographic evidence of malignancy. Follow-up mammogram in 1 year is recommended. BI-RADS Category 2: Benign Finding(s) Beatriz Escobar APRN IMG MAMMOGRAPHY ORDERABLES F inal Result after 10/13/2023 Insurance [employer]ET[employer] PPO POS AET[employer] PPO POS Advance Directives * Full Code (Latest Code Status on File) Date Activated Date Inactivated Comments 05/06/2018 8:15 AM 05/06/2018 12:09 PM Care Teams Plastic Sewer Relationship Specialty Start Date End Date Gibran Taylor PA [address] [place] [address], [place] [address] PCP - External Referring Physician Hemming And Tacking Machine Operator 03/04/18 Gurpreet Davila MD [address] [facility] [address] [place] [address] [email or web address] PCP - External Primary Care Provider Family Practice 03/04/18 Fior Mccoy MD [address] [place] [id number] [email or web address] PCP - General Surgical Oncology 03/04/18 Mira Dunbar MD [address] [place] [phone] [email or web address] Consulting Physician Dermatology 08/19/18 Teresa Webb MD [address] [place] [phone] [email or web address] Consulting Physician Breast Medical Oncology 11/17/20
[2024-10-12] MEDS ORDERED: IPRATROPIUM BROM 0.5MG/2.5ML ONE (11:27)
[2024-10-12] MEDS ORDERED: LEVALBUTEROL 1.25 MG/3 ML NEB ONE (11:27)
[2024-10-12] MEDS ORDERED: METHYLPREDNISOLONE 125 MG INJ ONE (11:27)
--- NOTE | 2024-10-12 11:28 | RAD REPORT ---
EXAMINATION: ONE VIEW CHEST XR CLINICAL INDICATION: COPD;Dyspnea TECHNIQUE: Frontal chest projection is submitted. Examination is limited by patient positioning and t echnique. COMPARISON: 04/11/2016 FINDINGS: Mild linear atelectasis is seen in the left lung base. The lungs are otherwise clear. The heart is no rmal in size. No displaced fractures identified. Cervical spine hardware plate. IMPRESSION: No acute intrathoracic abnormalities.
[2024-10-12 11:38] LABS: Absolute Basophils 0.1 K/uL (0-0.5); Absolute Lymphocytes (CBC) 3.3 K/uL (0.7-4.9); Absolute Monocytes 0.4 K/uL (0.1-1.3); Absolute Neutrophil 9.8 K/uL (1.8-8.0); Basophils % 0.6 % (0-1.3); Eosinophils % 0.1 % (0-4.4); Hematocrit 42.4 % (36.0-45.0); Hemoglobin 14.3 g/dL (12.0-15.0); Lymphocytes % 24.3 % (15.3-44.8); MCH 30.5 pg (27.0-35.0); MCHC 33.7 g/dL (32.0-36.0); MCV 90.3 fL (80-100); MPV 7.3 fL (7.6-11.3); Monocytes % 2.6 % (3.3-12.3); Neutrophils % 72.4 % (41.7-73.7); Platelets 488 thou/uL (152-406); Red Cell Distribution Width 14.4 % (12.1-15.2)
[2024-10-12 12:03] LABS: Anion Gap 9.7 mEq/L (5.0-15.0); Potassium 3.7 mEq/L (3.5-5.1); Troponin High Sensitivity 3.7 pg/mL (<58.9)
--- NOTE | 2024-10-12 12:08 | EDPHYS ---
Physician Documentation [facility] Name: Shabnam Hua Age: 58 yrs Sex: Female : 1965 Arrival Date: 10/12/2024 Time: 10:27 Bed DX5 Private MD: ED Physician Renny Danielle HPI: 10/12 10:57 This 58 yrs old Female presents to ER via Ambulatory with complaints of sob, Chest rn Congestion. 10:58 The patient has shortness of breath at rest, with light activity. Onset: The rn symptoms/episode began/occurred. 10:58 Onset: The symptoms/episode began/occurred 1 week(s) ago. Duration: The symptoms are rn intermittent. The patient's shortness of breath is aggravated by light activity, talking, walking. Severity of symptoms: At their worst the symptoms were mild in the emergency department the symptoms are unchanged. The patient has experienced similar episodes in the past. Patient reports shortness of breath with chest congestion for 1 week. 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 Patient has COPD. Patient reports has been on 2 rounds of antibiotics and symptoms not improving. Does not think she has been given steroids recently. No hemoptysis. No history of DVT or PE. Had a day surgery this past week on the hyoid for sleep apnea but was in and out and denies any leg swelling or tenderness.. Historical: - Allergies: 10:52 No Known Allergies; cm10 - PMHx: 10:52 Chronic obstructive lung disease; Sleep apnea; cm10 - Immunization history:: Adult Immunizations up to date. - Infectious Disease History:: Denies. - Social history:: Smoking status: Patient denies any tobacco usage or history of. - Family history:: not pertinent. - Hospitalizations: : No recent hospitalization is reported. ROS: 10:58 Constitutional: Negative for fever, chills, and weight loss, Cardiovascular: Negative rn for chest pain, positive for "chest congestion" Respiratory: Positive for cough and shortness of breath Abdomen/GI: Negative for abdominal pain, nausea, vomiting, diarrhea, and constipation, MS/Extremity: Negative for injury and deformity, Skin: Negative for injury, rash, and discoloration, Neuro: Negative for headache, weakness, numbness, tingling, and seizure, Exam: 10:58 Constitutional: This is a well developed, well nourished patient who is awake, alert, rn and in no acute distress. Head/Face: Normocephalic, atraumatic. Cardiovascular: Regular rate and rhythm. No pulse deficits. Respiratory: Mild tachypnea, no retractions. Skin: Warm, dry MS/ Extremity: Pulses equal, no cyanosis. Neurovascular intact. Full, normal range of motion. Equal circumference. Neuro: Awake and alert, GCS 15 11:46 ECG was reviewed by the Attending Physician. rn Vital Signs: 10:50 BP 129 / 94; Pulse 70; Resp 18; Temp 97.5; Pulse Ox 97% on R/A; Weight 70.31 kg; Height cm10 5 ft. 5 in. ; Pain 6/10; 12:52 BP 123 / 87; Pulse 86; Resp 18; Temp 97.1; Pulse Ox 98% on R/A; ph 10:50 Body Mass Index 25.79 (70.31 kg, 165.1 cm) cm10 10:50 Pain Scale: Adult cm10 MDM: 10:34 Medical Screening Exam initiated rn 12:06 Differential diagnosis: Chronic Obstructive Pulmonary Disease Myocardial Infarction rn pneumonia, Pneumothorax pulmonary edema. Data reviewed: vital signs, nurses notes, lab test result(s), EKG, radiologic studies, plain films, and as a result, I will discharge patient. Independent interpretation of the following test(s) in the Emergency Department X-Ray: My interpretation is Chest x-ray images negative for pneumothorax or pneumonia per my interpretation. Counseling: I had a detailed discussion with the patient and/or guardian regarding the historical points, exam findings, and any diagnostic results supporting the discharge/admit diagnosis, lab results, radiology results, the need for outpatient follow up, to return to the emergency department if symptoms worsen or persist or if there are any questions or concerns that arise at home. Response to treatment: the patient's symptoms have mildly improved after treatment. Special discussion: I discussed with the patient/guardian in detail that at this point there is no indication for admission to the hospital. It is understood, however, that if the symptoms persist or worsen the patient needs to return immediately for re-evaluation. ED course: I have personally reviewed all of the results, including but not limited to blood tests and imaging deemed necessary to safely discharge this patient at this time. All results given to and printed out for patient. I personally went over all the results with the patient and answered all questions. Patient will follow-up with PCP and or specialist as discussed. Return precautions given and understood. Will treat as COPD exacerbation as patient not improving despite multiple rounds of antibiotics.. 10/12 10:55 Order name: Basic Metabolic Panel; Complete Time: 12:05 rn 10/12 10:55 Order name: CBC with Diff; Complete Time: 12:05 rn 10/12 10:55 Order name: NT PRO-BNP; Complete Time: 12:05 rn 10/12 10:55 Order name: Troponin HS; Complete Time: 12:05 rn 10/12 10:55 Order name: XRAY Chest (1 view); Complete Time: 11:38 rn 10/12 10:55 Order name: EKG - Nurse/Tech; Complete Time: 10:55 rn 10/12 10:55 Order name: IV Saline Lock; Complete Time: 11:28 rn 10/12 10:55 Order name: Labs collected and sent; Complete Time: 11:28 rn 10/12 10:55 Order name: O2 Per Protocol; Complete Time: 12:51 rn 10/12 10:55 Order name: O2 Sat Monitoring; Complete Time: 12:51 rn EC:46 Rate is 73 beats/min. Rhythm is regular. QRS Dawson is Normal. AK interval is normal. QRS rn interval is normal. QT interval is normal. No Q waves. T waves are Normal. No ST changes noted. Clinical impression: Normal ECG. Interpreted by me. Reviewed by me. Administered Medications: 11:33 Drug: MethylPrednisoLONE IVP 125 mg IVP once Route: IVP; Site: right antecubital; aa5 11:40 Follow up: Response: No adverse reaction aa5 11:33 Drug: Levalbuterol Inhalation 1.25 mg Inhalation once Route: Inhalation; aa5 11:33 Drug: Ipratropium Inhalation Aerosol 0.5 mg Inhalation once Route: Inhalation; aa5 Disposition Summary: 10/12/24 12:07 Discharge Ordered Notes: Location: Home rn Problem: an ongoing problem rn Symptoms: have improved rn Condition: Stable rn Diagnosis - COPD/ Chronic obstructive pulmonary disease, unspecified rn Followup: rn - With: Private Physician - When: As needed - Reason: Recheck today's complaints, Re-evaluation by your physician Discharge Instructions: - Discharge Summary Sheet rn - Chronic Obstructive Pulmonary Disease rn Forms: - Medication Reconciliation Form rn - Antibiotic care director rn - Prescription Opioid Use rn - Patient Portal Instructions rn - Leadership Thank You Letter rn Prescriptions: - Prednisone 20 mg Oral Tablet - take 3 tablets ORAL route once daily for 5 days; 15 tablet; Refills: 0, Product rn Selection Permitted Signatures: Dispatcher [employer] EDMS Renny Danielle MD MD rn Calderon, Audri RN RN aa5 Rosario Smith RN RN cm10 Corrections: (The following items were deleted from the chart) 10:55 10:55 BASIC METABOLIC PANEL+C.LAB.BRZ ordered. EDMS EDMS 10:55 10:55 CBC+H.LAB.BRZ ordered. EDMS EDMS 10:55 10:55 PROBNP+C.LAB.BRZ ordered. EDMS EDMS 10:55 10:55 Troponin High Sensitivity+C.LAB.BRZ ordered. EDMS EDMS 10:55 10:55 Chest Single View+RAD.RAD.BRZ ordered. EDMS EDMS 12:51 10:55 Cardiac monitoring ordered. rn ph
--- NOTE | 2024-10-12 12:08 | ER ---
Nurse's Notes [facility] Name: Shabnam Hua Age: 58 yrs Sex: Female : 1965 Arrival Date: 10/12/2024 Time: 10:27 Bed DX5 Private MD: Diagnosis: COPD/ Chronic obstructive pulmonary disease, unspecified Presentation: 10/12 10:50 Chief complaint: Patient states: Chest pain to the center of chest onset 1 week ago. pt cm10 states that she had a neck procedure on oct 01 and since then she has had pain. Pt states that the pain to the center of chest and describes the pain as pressure. Coronavirus screen: Client denies travel out of the [place] in the last 14 days. Ebola Screen: Patient denies travel to an Ebola-affected area in the 21 days before illness onset. Initial Sepsis Screen: Does the patient meet any 2 criteria? No. Patient's initial sepsis screen is negative. Does the patient have a suspected source of infection? No. Patient's initial sepsis screen is negative. Risk Assessment: Do you want to hurt yourself or someone else? Patient reports no desire to harm self or others. Onset of symptoms was October 12, 2024. 10:50 Method Of Arrival: Ambulatory cm10 10:50 Acuity: CHARLETTE 3 cm10 Triage Assessment: 10:54 General: Appears in no apparent distress. uncomfortable, Behavior is calm, cooperative, cm10 appropriate for age. Pain: Complains of pain in chest Pain does not radiate. Pain currently is 6 out of 10 on a pain scale. Quality of pain is described as pressure. Neuro: No deficits noted. Level of Consciousness is awake, alert, obeys commands, Oriented to person, place, time, situation, Appropriate for age. Respiratory: No deficits noted. Reports pain with cough Airway is patent Respiratory effort is even, unlabored, Respiratory pattern is regular, symmetrical. Historical: - Allergies: 10:52 No Known Allergies; cm10 - PMHx: 10:52 Chronic obstructive lung disease; Sleep apnea; cm10 - Immunization history:: Adult Immunizations up to date. - Infectious Disease History:: Denies. - Social history:: Smoking status: Patient denies any tobacco usage or history of. - Family history:: not pertinent. - Hospitalizations: : No recent hospitalization is reported. Screenin:52 [facility] ED Fall Risk Assessment (Adult) History of falling in the last 3 months, ph including since admission No falls in past 3 months (0 pts) Confusion or Disorientation No (0 pts) Intoxicated or Sedated No (0 pts) Impaired Gait No (0 pts) Mobility Assist Device Used No (0 pt) Altered Elimination No (0 pt) Score/Fall Risk Level 0 - 2 = Low Risk Oriented to surroundings, Maintained a safe environment, Hourly rounding (assess needs \T\ fall precautionary measures) done. Abuse screen: Denies threats or abuse. Denies injuries from another. Nutritional screening: No deficits noted. Tuberculosis screening: No symptoms or risk factors identified. Assessment: 11:33 Reassessment: Patient is alert, oriented x 3, equal unlabored respirations, skin aa5 warm/dry/pink. Pt sitting on recliner (internal waiting area). 12:52 Reassessment: Patient appears in no apparent distress at this time. Patient and/or ph family updated on plan of care and expected duration. Pain level reassessed. Patient is alert, oriented x 3, equal unlabored respirations, skin warm/dry/pink. Pt d/c home. Vital Signs: 10:50 BP 129 / 94; Pulse 70; Resp 18; Temp 97.5; Pulse Ox 97% on R/A; Weight 70.31 kg; Height cm10 5 ft. 5 in. ; Pain 6/10; 12:52 BP 123 / 87; Pulse 86; Resp 18; Temp 97.1; Pulse Ox 98% on R/A; ph 10:50 Body Mass Index 25.79 (70.31 kg, 165.1 cm) cm10 10:50 Pain Scale: Adult cm10 ED Course: 10:31 Patient arrived in ED. im 10:34 Renny Danielle MD is Attending Physician. rn 10:50 Arm band placed on right wrist. Patient placed in waiting room. EKG completed in cm10 triage. Results shown to MD. 10:52 Triage completed. cm10 10:55 EKG done, by ED staff, reviewed by Renny Danielle MD. cm10 11:18 XRAY Chest (1 view) In Process Unspecified. EDMS 11:29 Initial lab(s) drawn, by ri, sent to lab. Inserted saline lock: 20 gauge in right rk3 antecubital area, using aseptic technique. Blood collected. Flushed with 10 mL NS. 12:51 Veronica Aldana, RN is Primary Nurse. ph 12:52 No provider procedures requiring assistance completed. IV discontinued, intact, ph bleeding controlled, No redness/swelling at site. Pressure dressing applied. Patient maintains SpO2 saturation greater than 95% on room air. 12:53 Patient has correct armband on for positive identification. ph Administered Medications: 11:33 Drug: MethylPrednisoLONE IVP 125 mg IVP once Route: IVP; Site: right antecubital; aa5 11:40 Follow up: Response: No adverse reaction aa5 11:33 Drug: Levalbuterol Inhalation 1.25 mg Inhalation once Route: Inhalation; aa5 11:33 Drug: Ipratropium Inhalation Aerosol 0.5 mg Inhalation once Route: Inhalation; aa5 Medication: 12:52 VIS not applicable for this client. ph Outcome: 12:07 Discharge ordered by . rn 12:53 Discharged to home ambulatory, ph 12:53 Condition: good 12:53 Discharge instructions given to patient, Instructed on discharge instructions, follow up and referral plans. medication usage, Demonstrated understanding of instructions, follow-up care, medications, Prescriptions given X 1, 12:53 Patient left the ED. ph Signatures: Dispatcher [employer] EDMS Renny Danielle MD MD rn Calderon, Audri RN RN aa5 Veronica Aldana, RN RN Jocy Lama Clarissa, RN RN cm10 Toño Ellison rk3
[2024-10-12 13:21] VITALS: BP 123/87; TEMP 97.1; O2SAT 98
--- NOTE | 2024-10-13 12:15 | EKG ---
Test Date: 2024-10-12 Test Time: 10:47:45 Air Tube Releaser: MARCO MEASUREMENT RESULTS: Intervals: Rate: 73 TN: 148 QRSD: 68 QT: 392 QTc: 431 Barlow: P: 23 TN: 148 QRS: 20 T: 45 INTERPRETIVE STATEMENTS: Normal sinus rhythm Normal ECG Compared to ECG 09/30/2024 14:41:34 Sinus bradycardia no longer present Electronically Signed On 10-13-24 12:11:27 AM[employer]MENT [employer]CH[employer] by Binh Norris
== END 2024-10-12 12:53 | disposition home or self-care (01) ==
LOC: ER 10:27
DX: J44.9 Chronic obstructive pulmonary disease, unspecified (principal); R07.89 Other chest pain; R05.9 Cough, unspecified
CPT/HCPCS: 93005; 85025; 80048; 36415; 84484; 83880; 71045; 96374; 99285; J7614; J7644; J2919